=== PATIENT | female | born 1980 | race Caucasian/White ===

== ENCOUNTER → 2020-11-26 | Outpatient (CLI) | payer OTHER ==
--- NOTE | 2020-11-26 14:47 | RAD ---
Exam performed: CT scan of the abdomen and pelvis without contrast. Clinical Indication: Lower abdominal pain, Date of Service: 11/26/2020 . Comparison: None available Technique: Contiguous helical acquisitions are obtained through the abdomen and pelvis without oral o r IV contrast. Sagittal and coronal reformatted images are obtained and reviewed. CT abdomen findings: The lung bases are essentially clear. The visualized heart is normal. Lack of IV contrast limits evaluation of abdominal viscera, however the liver, spleen, pancreas and g allbladder appear normal. Both adrenal glands and bilateral kidneys are normal in size. There is no n ephrolithiasis or hydronephrosis. No perinephric stranding is seen. Aorta is normal in caliber. No re troperitoneal or mesenteric lymphadenopathy. Small and large bowel loops are nondilated and unremarkable. Visualized appendix is normal. CT pelvis findings: The pelvic bowel loops are nondilated and unremarkable. The urinary bladder is decompressed. The uter us is anteverted and normal. No adnexal masses. No fluid collections or pelvic lymphadenopathy. Bones are unremarkable. Impression: No acute intra-abdominal or pelvic process noted. PQRS Compliance Statement: One or more of the following individualized dose reduction techniques were utilized for this examinat ion: 1. Automated exposure control 2. Adjustment of the mA and/or kV according to patient size 3. Use of iterative reconstruction technique Electronically signed by: Bhavya Alexander MD (11/26/2020 2:44 PM) [facility]
== END ==
LOC: DXRAD 13:45
PROVIDERS: ATTEND Nurse Practitioner
DX: R10.30 Lower abdominal pain, unspecified (principal)
CPT/HCPCS: 74176